=== PATIENT | male | born 1955 | race Caucasian/White ===

== ENCOUNTER 2025-06-25 14:49 | Emergency (ER) | payer OTHER ==
[2025-06-25 16:14] LABS: PT Prothrombin Time 12.2 SECONDS (10-13.0); PTT, Activated Partial Thromb 29.6 SECONDS (27.2-37.4); Protime INR 1.08
[2025-06-25 16:15] LABS: Absolute Lymphocytes (CBC) 1.5 K/uL (0.7-4.9); Hematocrit 35.2 % (39.6-49.0); Hemoglobin 11.5 g/dL (13.6-17.9); MCH 25.4 pg (27.0-35.0); MCHC 32.7 g/dL (32.0-36.0); MCV 77.9 fL (80-100); MPV 8.6 fL (7.6-11.3); Nucleated RBC Absolute Count 0.0 (0-0); Nucleated Red Blood Cells % 0.1 % (0-0); RBC Red Blood Cell Count 4.53 M/uL (4.33-5.43); White Blood Count 8.50 thou/uL (4.3-10.9)
[2025-06-25 16:22] LABS: ALT/SGPT 20.0 U/L (16-61); AST/SGOT 12.0 U/L (15-37); Albumin 3.4 g/dL (3.4-5.0); Albumin/Globulin Ratio 1.2 (1.1-1.8); Alkaline Phosphatase 41.0 U/L (45-117); Anion Gap 10.4 mEq/L (5.0-15.0); BUN Blood Urea Nitrogen 25.0 mg/dL (7-18); Bilirubin Indirect, Calculated 0.5 mg/dL (0.2-0.8); Globulin 2.8 g/dL (2.3-3.5); Glucose Level 103.0 mg/dL (74-106); Magnesium 2.0 mg/dL (1.6-2.4); Potassium 3.4 mEq/L (3.5-5.1); Troponin High Sensitivity 3.9 pg/mL (<58.9)
--- NOTE | 2025-06-25 17:11 | RAD REPORT ---
EXAMINATION: CTA CHEST PE CLINICAL INDICATION: Male, 69 years old. CHEST PAIN TECHNIQUE: This examination was performed according to an angiographic protocol with 3D post-processi ng. This involves 3D reconstructions, MIPs, volume rendered images and/or shaded surface rendering. One or more of the following dose reduction techniques were used: Automated exposure control, adjustm ent of the mA and/or kV according to patient size, and/or iterative reconstruction. Unless otherwise specified, incidental findings do not require dedicated imaging follow-up. [id number]. COMPARISON: No priors. FINDINGS: LOWER NECK: Visualized thyroid gland and soft tissues are normal. MEDIASTINUM AND LYMPH NODES: No mediastinal mass or fluid collection. Normal size mediastinal, hilar, and axillary lymph nodes. Small hiatal hernia with thickened distal esophagus. THORACIC AORTA: No thoracic aortic aneurysm. PULMONARY ARTERIES: Caliber is within normal limits. HEART: Normal heart size. No coronary calcifications.No significant pericardial effusion. LUNGS AND AIRWAYS: Dependent atelectasis. Small focus of groundglass ground at the right lung apex of uncertain, if any, clinical significance.. No suspicious and/or stable pulmonary nodules. PLEURA: No pleural effusions. No pneumothorax. OSSEOUS STRUCTURES AND CHEST WALL: No fracture or suspicious osseous lesions. UPPER ABDOMEN: No acute abnormalities. IMPRESSION: Negative for pulmonary embolism. No other acute process identified in the chest.
--- NOTE | 2025-06-25 17:14 | RAD REPORT ---
EXAMINATION: Abdomen Pelvis W Contrast CLINICAL INDICATION: Male, 69 years old.ABD PAIN TECHNIQUE: CT abdomen and pelvis was performed, after the administration of IV contrast, as per [id number] protocol. Axial, sagittal and coronal reconstructions were obtained. One or more of the following dose reduction techniques were used: Automated exposure control, adjustment of the mA and/o r kV according to patient size, and/or iterative reconstruction. Unless otherwise specified, incidental findings do not require dedicated imaging follow-up. [id number]. COMPARISON: No prior exams FINDINGS: LOWER CHEST: Mild thickening distal esophagus with small hiatal hernia.No significant pericardial eff usion. UPPER GI: No significant abnormality. LIVER: No significant focal abnormality. GALLBLADDER/BILE DUCTS: No biliary ductal dilatation.? PANCREAS: No mass, ductal dilation, or shannen-pancreatic fluid. SPLEEN: Unremarkable. ADRENALS: No adrenal masses. KIDNEYS AND URETERS: No hydronephrosis.No suspicious renal mass.Nonobstructing renal calculi. ABDOMINAL AORTA AND OTHER VESSELS: Normal caliber aorta and IVC. PERITONEUM: No abnormal free fluid. No free air. LYMPH NODES: No pathologic lymphadenopathy. ABDOMINAL WALL: Unremarkable SMALL BOWEL/COLON: Small bowel has normal course and caliber. No colonic wall thickening or pericolon ic inflammatory changes.Normal appendix. URINARY BLADDER: Underdistended but grossly unremarkable. REPRODUCTIVE ORGANS: No pathologic process. MUSCULOSKELETAL: Grade 1 anterolisthesis of L3 on L4. Degenerative changes are present L4-5 and L5-S1 . ADDITIONAL FINDINGS: None. IMPRESSION: No acute findings within the abdomen or pelvis.
--- NOTE | 2025-06-25 17:35 | EDPHYS ---
Physician Documentation [facility] Name: Scott Reynoso Age: 69 yrs Sex: Male : 1955 Arrival Date: 06/25/2025 Time: 14:49 Bed 5 Private MD: ED Physician Brian Roper HPI: 06/25 17:40 This 69 yrs old Male presents to ER via Ambulatory with complaints of ESOPHAGUS PAIN, kb THROWING UP BLOOD. 17:40 Pt is a 69 year old male who presents for pain to esophagus and spitting up blood that kb started this morning. States he has a history of GERD and thinks he has a bleeding ulcer. States he tried to call his GI dr but didn't get a callback so decided to come in. REports he has had a cough that is improving since having covid 4 weeks ago. Denies n/v/d, fever. Historical: - Allergies: 15:02 surgical tape; aa5 - PMHx: 15:00 Acid Reflux; aa5 15:02 Hypertensive disorder; aa5 - PSHx: 15:02 Bladder sx; Haim Rotator cuff; aa5 - Immunization history:: Adult Immunizations unknown. - Infectious Disease History:: Denies. - Social history:: Smoking status: Patient denies any tobacco usage or history of. ROS: 17:37 Constitutional: As per HPI kb Exam: 15:44 Constitutional: This is a well developed, well nourished patient who is awake, alert, kb and in no acute distress. Head/Face: Normocephalic, atraumatic. ENT: Moist Mucous membranes Cardiovascular: Regular rate Respiratory: Respirations even and unlabored. No increased work of breathing. Talking in full sentences Skin: Warm, dry with normal turgor. Normal color. MS/ Extremity: Pulses equal, no cyanosis. Neurovascular intact. Full, normal range of motion. Neuro: Awake and alert, GCS 15, oriented to person, place, time, and situation. 15:44 ECG was reviewed by the Attending Physician. 17:43 Abdomen/GI: Inspection: abdomen appears normal, Bowel sounds: active, Palpation: soft, kb in all quadrants, mild abdominal tenderness, in the epigastric area, Vital Signs: 14:59 BP 113 / 73; Pulse 68; Resp 18 S; Temp 97.8(TE); Pulse Ox 98% on R/A; Weight 79.38 kg aa5 (R); Height 5 ft. 10 in. (R); 16:07 BP 104 / 74; Pulse 64; Resp 18; Pulse Ox 97% on R/A; ph 17:52 BP 111 / 77; Pulse 68; Resp 16; Pulse Ox 98% on R/A; dd2 14:59 Body Mass Index 25.11 (79.38 kg, 177.8 cm) aa5 MDM: 14:58 Medical Screening Exam initiated kb 17:37 Differential diagnosis: gi bleed , gastric ulcer, gerd, esophagitis, pe. Data reviewed: kb vital signs, nurses notes. Management of patient was discussed with the following: Dr Roper. Historians other than the Patient: Spouse/Significant Other: . Counseling: I had a detailed discussion with the patient and/or guardian regarding the historical points, exam findings, and any diagnostic results supporting the discharge/admit diagnosis, lab results, radiology results, the need for outpatient follow up, a garnishment specialist, to return to the emergency department if symptoms worsen or persist or if there are any questions or concerns that arise at home. 17:39 ED course: Pt will follow up with his GI dr in [place]. kb 06/25 15:04 Order name: Basic Metabolic Panel; Complete Time: 16:24 kb 06/25 15:04 Order name: CBC with Diff; Complete Time: 16:24 kb 06/25 15:04 Order name: Hepatic Function; Complete Time: 16:24 kb 06/25 15:04 Order name: Magnesium; Complete Time: 16:24 kb 06/25 15:04 Order name: Protime (+inr); Complete Time: 16:16 kb 06/25 15:04 Order name: Ptt, Activated; Complete Time: 16:16 kb 06/25 15:04 Order name: Troponin High Sensitivity; Complete Time: 16:24 kb 06/25 15:04 Order name: CT Chest For PE Angio; Complete Time: 17:26 kb 06/25 15:04 Order name: CT Abd/Pelvis - IV Contrast Only; Complete Time: 17:26 kb 06/25 15:04 Order name: Cardiac monitoring; Complete Time: 15:48 kb 06/25 15:04 Order name: EKG - Nurse/Tech; Complete Time: 15:48 kb 06/25 15:04 Order name: IV Saline Lock; Complete Time: 16:04 kb 06/25 15:04 Order name: Labs collected and sent; Complete Time: 16:04 kb 06/25 15:04 Order name: NPO; Complete Time: 15:18 kb 06/25 15:04 Order name: O2 Per Protocol; Complete Time: 15:18 kb 06/25 15:04 Order name: O2 Sat Monitoring; Complete Time: 15:18 kb EC:44 Rate is 63 beats/min. Rhythm is regular. QRS [place] is Normal. NH interval is normal at kb 188 msec. QRS interval is normal at 76 msec. QT interval is normal at 458 msec. Administered Medications: 17:46 Drug: Famotidine IVP 20 mg IVP once; dilute with 10 mL 0.9% NaCl; give over 2 minutes dd2 Route: IVP; Site: right antecubital; 17:57 Follow up: Response: Medication administered at discharge. dd2 17:46 Drug: GI Cocktail without - (Maalox PO 30 ml, Lidocaine Mucous Membrane 2 % 15 dd2 ml) PO once Route: PO; 17:57 Follow up: Response: Medication administered at discharge. dd2 Disposition: 18:19 Co-signature as Attending Physician, Brian Roper MD I reviewed the patient's care rn provided by the Advanced Practice Provider and agree with the diagnosis and treatment plan. Disposition Summary: 06/25/25 17:34 Discharge Ordered Notes: Location: Home kb Condition: Stable kb Diagnosis - Esophagitis, unspecified kb Followup: kb - With: Emergency Department - When: As needed - Reason: Worsening of condition Followup: kb - With: Private Physician - When: 2 - 3 days - Reason: Recheck today's complaints, Continuance of care, Re-evaluation by your physician Discharge Instructions: - Discharge Summary Sheet kb - Esophagitis kb - Hiatal Hernia kb Forms: - Medication Reconciliation Form kb - Antibiotic Education kb - Prescription Opioid Use kb - Patient Portal Instructions kb - Leadership Thank You Letter kb Signatures: Dispatcher [employer] Echo Brennan, RIB PULLER-C RIB PULLER-Ckb Brian Roper MD MD rn Calderon, Audri RN RN aa5 RACHAEL PEREZ RN RN dd2 Corrections: (The following items were deleted from the chart) 15:05 15:04 BASIC METABOLIC PANEL+C.LAB.BRZ ordered. EDMS EDMS 15:05 15:04 CBC+H.LAB.BRZ ordered. EDMS EDMS 15:05 15:04 HEPATIC FUNCTION+C.LAB.BRZ ordered. EDMS EDMS 15:05 15:04 MAGNESIUM+C.LAB.BRZ ordered. EDMS EDMS 15:05 15:04 PROTIME (+INR)+COAG.LAB.BRZ ordered. EDMS EDMS 15:05 15:04 PTT, ACTIVATED+COAG.LAB.BRZ ordered. EDMS EDMS 15:05 15:04 Troponin High Sensitivity+C.LAB.BRZ ordered. EDMS EDMS 15:05 15:05 Chest For PE Angio+CT.RAD.BRZ ordered. EDMS EDMS 15:05 15:05 Abdomen Pelvis W Con+CT.RAD.BRZ ordered. EDMS EDMS 17:43 15:44 Constitutional: This is a well developed, well nourished patient who is awake, kb alert, and in no acute distress. Head/Face: Normocephalic, atraumatic. ENT: Moist Mucous membranes Cardiovascular: Regular rate Respiratory: Respirations even and unlabored. No increased work of breathing. Talking in full sentences Abdomen/GI: Soft, non-tender. No distention Skin: Warm, dry with normal turgor. Normal color. MS/ Extremity: Pulses equal, no cyanosis. Neurovascular intact. Full, normal range of motion. Neuro: Awake and alert, GCS 15, oriented to person, place, time, and situation. kb
--- NOTE | 2025-06-25 17:35 | ER ---
Nurse's Notes [facility] Name: Scott Reynoso Age: 69 yrs Sex: Male : 1955 Arrival Date: 06/25/2025 Time: 14:49 Bed 5 Private MD: Diagnosis: Esophagitis, unspecified Presentation: 06/25 14:59 Chief complaint: Patient states: "I woke up spitting up blood". Pt also c/o esophageal aa5 burning sensation, hx of acid reflux. Coronavirus screen: At this time, the client does not indicate any symptoms associated with coronavirus-19. Ebola Screen: Patient denies travel to an Ebola-affected area in the 21 days before illness onset. Initial Sepsis Screen: Does the patient meet any 2 criteria? No. Patient's initial sepsis screen is negative. Does the patient have a suspected source of infection? No. Patient's initial sepsis screen is negative. Risk Assessment: Do you want to hurt yourself or someone else? Patient reports no desire to harm self or others. Onset of symptoms was June 25, 2025. 14:59 Acuity: ERIKA 3 aa5 14:59 Method Of Arrival: Ambulatory aa5 Historical: - Allergies: 15:02 surgical tape; aa5 - PMHx: 15:00 Acid Reflux; aa5 15:02 Hypertensive disorder; aa5 - PSHx: 15:02 Bladder sx; Haim Rotator cuff; aa5 - Immunization history:: Adult Immunizations unknown. - Infectious Disease History:: Denies. - Social history:: Smoking status: Patient denies any tobacco usage or history of. Screenin:06 [facility] ED Fall Risk Assessment (Adult) History of falling in the last 3 months, ph including since admission No falls in past 3 months (0 pts) Confusion or Disorientation No (0 pts) Intoxicated or Sedated No (0 pts) Impaired Gait No (0 pts) Mobility Assist Device Used No (0 pt) Altered Elimination No (0 pt) Score/Fall Risk Level 0 - 2 = Low Risk Oriented to surroundings, Maintained a safe environment, Hourly rounding (assess needs \\T\\ fall precautionary measures) done. Abuse screen: Denies threats or abuse. Denies injuries from another. Nutritional screening: No deficits noted. Tuberculosis screening: No symptoms or risk factors identified. Assessment: 16:07 General: Appears in no apparent distress. comfortable, well groomed, Behavior is calm, ph cooperative, appropriate for age. Pain: Complains of pain in mid-sternal area. Neuro: Level of Consciousness is awake, alert, obeys commands, Oriented to person, place, time, situation. Cardiovascular: Capillary refill < 3 seconds in bilateral fingers Patient's skin is warm and dry. Respiratory: Airway is patent Respiratory effort is even, unlabored. GI: Reports "spitting up blood" Patient currently denies nausea, vomiting. Derm: Skin is pink, warm \\T\\ dry. Vital Signs: 14:59 BP 113 / 73; Pulse 68; Resp 18 S; Temp 97.8(TE); Pulse Ox 98% on R/A; Weight 79.38 kg aa5 (R); Height 5 ft. 10 in. (R); 16:07 BP 104 / 74; Pulse 64; Resp 18; Pulse Ox 97% on R/A; ph 17:52 BP 111 / 77; Pulse 68; Resp 16; Pulse Ox 98% on R/A; dd2 14:59 Body Mass Index 25.11 (79.38 kg, 177.8 cm) aa5 ED Course: 14:54 Patient arrived in ED. ts1 14:58 Echo Israel FNP-C is [facility]. kb 14:58 Brian Roper MD is Attending Physician. kb 14:59 Arm band placed on. aa5 15:00 Triage completed. aa5 15:18 Flaca Phan, RN is Primary Nurse. ph 15:48 EKG done, by ED staff, reviewed by Echo HOPSON. rk3 16:06 Initial lab(s) drawn, by ri, sent to lab. Inserted saline lock: 22 gauge in right ph antecubital area, using aseptic technique. Blood collected. Flushed with 10 mL NS. 16:07 Patient has correct armband on for positive identification. Bed in low position. Call ph light in reach. Side rails up X 1. Pulse ox on. NIBP on. Door closed. Noise minimized. 17:04 CT Chest For PE Angio In Process Unspecified. EDMS 17:04 CT Abd/Pelvis - IV Contrast Only In Process Unspecified. EDMS 17:52 Provided Education on: D/C EDUCATION. dd2 17:52 No provider procedures requiring assistance completed. IV discontinued, intact, dd2 bleeding controlled, No redness/swelling at site. Pressure dressing applied. Administered Medications: 17:46 Drug: Famotidine IVP 20 mg IVP once; dilute with 10 mL 0.9% NaCl; give over 2 minutes dd2 Route: IVP; Site: right antecubital; 17:57 Follow up: Response: Medication administered at discharge. dd2 17:46 Drug: GI Cocktail without - (Maalox PO 30 ml, Lidocaine Mucous Membrane 2 % 15 dd2 ml) PO once Route: PO; 17:57 Follow up: Response: Medication administered at discharge. dd2 Medication: 16:07 VIS not applicable for this client. ph Outcome: 17:34 Discharge ordered by . jose miguel 17:52 Discharged to home ambulatory, dd2 17:52 Condition: stable 17:52 Discharge instructions given to patient, family, Instructed on discharge instructions, follow up and referral plans. medication usage, Demonstrated understanding of instructions, follow-up care, medications, 17:57 Patient left the ED. dd2 Signatures: Dispatcher [employer] EDMS Echo Israel, DATA COLLECTION ASSOCIATE-C DATA COLLECTION ASSOCIATE-CkSydnie Jackson RN RN aa5 Flaca Phan RN RN ph Krissy Benoit PAS PAS ts1 RACHAEL PEREZ RN RN dd2 Demetrius Hdz rk3 Corrections: (The following items were deleted from the chart) 15:01 14:59 Chief complaint: Patient states: "I woke up spitting up blood". Pt also c/o aa5 esophageal burning sensation. aa5 15:04 14:59 BP 113 / 73; Pulse 68bpm; Resp 18bpm; Spontaneous; Pulse Ox 98% RA; aa5 aa5
[2025-06-25] MEDS ORDERED: FAMOTIDINE 20 MG/2 ML VIAL IV ONE (17:41)
[2025-06-25] MEDS ORDERED: MAGNES/ALUMIN/SIMET 30ML UCUP ONE (17:41)
[2025-06-25] MEDS ORDERED: LIDOCAINE VISCOUS 2% 10ML ORAL SOLN ONE (17:41)
== END 2025-06-25 17:57 | disposition home or self-care (01) ==
LOC: ER 14:49
DX: K20.90 Esophagitis, unspecified without bleeding (principal)
CPT/HCPCS: 85025; 80048; 36415; 83735; 85610; 80076; 85730; 84484; 71275; 74177; 96374; 99284; Q9967; 93005